=== PATIENT | female | born 1940 | race Caucasian/White ===

== ENCOUNTER 2016-09-19 15:05 | Outpatient (CLI) | payer MEDICARE | END 2016-09-19 15:06 | disposition home or self-care (01) | DX: I48.0 Paroxysmal atrial fibrillation (principal) ==

== ENCOUNTER 2017-01-11 11:41 | Outpatient (CLI) | payer OTHER, MEDICARE | END 2017-01-11 11:42 | disposition critical access hospital (66) | LOC: EMS 11:41 | PROVIDERS: ATTEND Surgery | DX: M25.561 Pain in right knee (principal); M25.522 Pain in left elbow; Z79.01 Long term (current) use of anticoagulants; V48.5XXA Car driver injured in noncollision transport accident in traffic accident, initial encounter; Y92.413 State road as the place of occurrence of the external cause | CPT/HCPCS: A0425; A0427 ==

== ENCOUNTER 2017-01-11 11:56 | Emergency (ER) | payer OTHER, MEDICARE ==
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
[2017-01-11 12:31] LABS: BASOPHILS % (AUTO) 0.5 %; EOSINOPHILS # (AUTO) 0.1 10^3/uL (0.0-0.7); EOSINOPHILS % (AUTO) 2.7 %; HCT - HEMATOCRIT 35.3 % (37.0-47.0); HGB - HEMOGLOBIN 12.4 g/dL (12.0-16.0); LYMPHOCYTES # (AUTO) 1.3 10^3/uL (1.5-3.5); LYMPHOCYTES % (AUTO) 27.5 %; MEAN CORPUSCULAR HEMOGLOBIN 32.6 pg (27.0-31.0); MEAN PLATELET VOLUME 8.1 fL (7.9-10.8); MONOCYTES # (AUTO) 0.4 10^3/uL (0.0-1.0); MONOCYTES % (AUTO) 9.4 %; NEUTROPHILS # (AUTO) 2.7 10^3/uL (1.5-6.6); NEUTROPHILS % (AUTO) 59.9 %; RED CELL DISTRIBUTION WIDTH 13.3 % (12.0-15.0); UNCORRECTED WHITE BLOOD COUNT 4.6 x10^3/uL; WHITE BLOOD COUNT 4.6 x10^3/uL (4.8-10.8)
[2017-01-11 12:39] LABS: ALBUMIN/GLOBULIN RATIO 1.4 (1.0-2.2); BILIRUBIN,TOTAL 1.1 mg/dL (0.2-1.0); BUN - BLOOD UREA NITROGEN 21 mg/dL (6-20); CALCIUM 9.2 mg/dL (8.5-10.3); CARBON DIOXIDE - CO2 30 mmol/L (21-32); CHLORIDE 102 mmol/L (101-111); GFR - MDRD 54 (>89); GLUCOSE 95 mg/dL (70-100); LIPASE 33 U/L (22-51); MAGNESIUM 1.8 mg/dL (1.7-2.8); POTASSIUM 3.5 mmol/L (3.5-5.0); SODIUM 138 mmol/L (135-145); TOTAL PROTEIN 6.4 g/dL (6.7-8.2)
--- NOTE | 2017-01-11 13:31 | CT Preliminary Report ---
Exam: CT Head W/O IMPRESSION: Generalized age-related cortical atrophic changes without evidence of acute intracranial abnormality. [facility] SITE ID: [id number]
--- NOTE | 2017-01-11 13:32 | XRAY Preliminary Report ---
Exam: XR Chest 2 View PA/LAT IMPRESSION: 1. Moderate hiatal hernia. 2. Otherwise, unremarkable exam. [facility] SITE ID: [id number]
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
[2017-01-11 14:03] VITALS: BP 127/60
== END 2017-01-11 14:20 | disposition home or self-care (01) ==
LOC: EDUNIT# → ED 11:56
DX: R55 Syncope and collapse (principal); S80.01XA Contusion of right knee, initial encounter; S50.311A Abrasion of right elbow, initial encounter; V48.0XXA Car driver injured in noncollision transport accident in nontraffic accident, initial encounter; I48.91 Unspecified atrial fibrillation; Z79.01 Long term (current) use of anticoagulants; Z79.82 Long term (current) use of aspirin; G20 Parkinson's disease
CPT/HCPCS: 36415; 70450; 71020; 80053; 83690; 83735; 84484; 85025; 93005; 93010; 99284; G0480; 80320

== ENCOUNTER 2017-01-25 13:35 | Outpatient (CLI) | payer MEDICARE | END 2017-01-25 13:36 | disposition home or self-care (01) | LOC: LAB 13:35 | PROVIDERS: ATTEND Internal Medicine Cardiovascular Disease | DX: I48.0 Paroxysmal atrial fibrillation (principal) | CPT/HCPCS: 36415; 82565 ==

== ENCOUNTER 2017-05-03 11:35 | Outpatient (CLI) | payer MEDICARE ==
[2017-05-03 12:35] LABS: CREATININE 1.1 mg/dL (0.4-1.0)
== END 2017-05-03 11:36 | disposition home or self-care (01) ==
LOC: LAB 11:35
PROVIDERS: ATTEND Nurse Practitioner
DX: I48.0 Paroxysmal atrial fibrillation (principal)
CPT/HCPCS: 36415; 82565

== ENCOUNTER 2017-08-02 10:35 | Outpatient (CLI) | payer MEDICARE ==
[2017-08-02 18:05] LABS: INR 1.2 (0.8-1.2); PT - PROTHROMBIN TIME 13.4 secs (9.9-12.6)
[2017-08-02 18:13] LABS: CREATININE 1.1 mg/dL (0.4-1.0)
== END 2017-08-02 10:36 | disposition home or self-care (01) ==
LOC: LAB.F 10:35
PROVIDERS: ATTEND Family Medicine
DX: I48.0 Paroxysmal atrial fibrillation (principal)
CPT/HCPCS: 36415; 82565; 85610

== ENCOUNTER 2018-04-16 13:35 | Emergency (ER) | payer MEDICARE ==
--- NOTE | 2018-04-16 15:04 | ED Physician Documentation ---
PD HPI HEAD INJURY - Stated complaint Stated Complaint: GLF/LT FACE LAC/XARELTO - Chief complaint Chief Complaint: Trauma Hd/Nk - History obtained from History obtained from: Patient, Family - History of Present Illness Mechanism of head injury: Fell Where head injury occurred: Home Timing - onset: Today Location of injury: Left, Front Quality of pain: Pain Associated symptoms: Nausea / vomiting. No: LOC, AMS, Amnesia, Neck pain, Paresthesias, Seizures, Ear drainage, Nasal drainage Symptoms improve with: Rest, Ice Symptoms worsen with: Palpation, Movement Contributing factors: Anticoagulated Similar symptoms before: Diagnosis (head injury without bleeding) Recently seen: Not recently seen - Additional information Additional information: 77-year-old female on Xarelto tripped over her garden hose fell forward and landed on her left face. She injured her left shoulder and her left knee with this fall. She did not have loss of consciousness she denies any neck pain she has had some mild nausea. Review of Systems Constitutional: denies: Fever Eyes: denies: Loss of vision, Decreased vision Ears: denies: Ear pain Nose: denies: Rhinorrhea / runny nose, Congestion Throat: denies: Sore throat Cardiac: denies: Chest pain / pressure, Palpitations Respiratory: denies: Dyspnea, Cough GI: reports: Nausea. denies: Abdominal Pain, Vomiting : denies: Dysuria, Frequency Skin: denies: Rash Musculoskeletal: reports: Extremity pain, Joint pain, Joint swelling, Pain with weight bearing. denies: Neck pain, Back pain Neurologic: denies: Generalized weakness, Focal weakness, Numbness PD PAST MEDICAL HISTORY - Past Medical History Past Medical History: Yes Cardiovascular: High cholesterol, Atrial fibrillation Respiratory: None Neuro: Parkinson's Endocrine/Autoimmune: None GI: GERD : None HEENT: None Psych: None Musculoskeletal: None Derm: None - Past Surgical History Past Surgical History: Yes General: Cholecystectomy - Present Medications Home Medications: Ambulatory Orders Medication Instructions Recorded Confirmed Aspirin [Willie Chewable Aspirin] 81 mg PO DAILY 12/11/15 01/11/17 Ca/D3/Mag#11/Zinc/Protection Chief Industrial Plant/Td/Bor 1 tab PO DAILY 12/11/15 01/11/17 [Caltrate 600+D Plus Tablet] Carbidopa/Levodopa [Carbidopa-Levo 1 tab PO TID 12/11/15 01/11/17 25-100 mg Odt] Cholecalciferol (Vitamin D3) 2,000 unit PO BID 12/11/15 01/11/17 [Vitamin D] Magnesium Oxide [Magnesium] 250 mg PO DAILY 12/11/15 01/11/17 Omeprazole 20 mg PO DAILY 12/11/15 01/11/17 Ropinirole HCl [Ropinirole ER] 6 mg PO DAILY 12/11/15 01/11/17 Simvastatin 10 mg PO DAILY 12/11/15 01/11/17 Rivaroxaban [Xarelto] 15 mg PO DAILY 01/11/17 01/11/17 - Allergies Allergies/Adverse Reactions: Allergies Allergy/AdvReac Type Severity Reaction Status Date / Time Sulfa (Sulfonamide Allergy Edema Verified 04/16/18 13:46 Antibiotics) - Social History Does the pt smoke?: No Smoking Status: Never smoker Does the pt drink ETOH?: No Does the pt have substance abuse?: No - Immunizations Immunizations are current?: Yes - POLST Patient has POLST: Yes PD ED PE NORMAL - Vitals Vital signs reviewed: Yes (normal ) - General General: Alert and oriented X 3, No acute distress, Well developed/nourished - HEENT HEENT: PERRL, EOMI, Ears normal, Other (There is a deep abrasion to the face on the left side especially the forehead with a deep laceration . There is a laceration to the left eyelid as well. ) - Neck Neck: Supple, no meningeal sign, No bony TTP - Cardiac Cardiac: RRR, No murmur - Respiratory Respiratory: No respiratory distress, Clear bilaterally - Abdomen Abdomen: Soft, Non tender - Back Back: No CVA TTP, No spinal TTP - Derm Derm: Normal color, Warm and dry, No rash - Extremities Extremities: No deformity, Other (There is swelling and ecchymosis to the left knee over the patella. There ) - Neuro Neuro: Alert and oriented X 3, motor vehicle emissions inspector 2-12 intact, No motor deficit, No sensory deficit, Normal speech Eye Opening: Spontaneous Motor: Obeys Commands Verbal: Oriented GCS Score: 15 - Psych Psych: Normal mood, Normal affect Results - Vitals Vitals: Vital Signs - 24 hr 04/16/18 13:41 Temperature 36.7 C Heart Rate 63 Respiratory 18 Rate Blood Pressure 121/71 O2 Saturation 99 Oxygen O2 Source [] Room air O2 Source Room air - Rads (name of study) CT head without Radiology: Prelim report reviewed (Impression: 1. Left frontal subgaleal scalp hematoma. No acute intracranial abnormality.), EMP read indepedently, See rad report knee left Radiology: Prelim report reviewed (Impression: Soft tissue swelling without underlying fracture or dislocation.), EMP read indepedently, See rad report Procedures - Laceration (location) face Length in cm: 5.5 (2 lacerations one to the forehead and one to the left eyelid) Wound type: Linear, Irregular, Into subcut fat, Clean Neurovascular status: Sensory intact, Motor intact, Vascular intact Anesthesia: Lidocaine 1%, With bicarb Wound Preparation: Hibiclens, Irrigated copiously NS, Wound explored, To the base Skin layer closure: Nylon, Interrupted, Size #-0 - enter number (6-0) Other: Patient tolerated well, No complications, Neurovascular intact, Tetanus UTD Complexity: Simple PD MEDICAL DECISION MAKING - ED course Complexity details: reviewed results, re-evaluated patient, considered differential, d/w patient, d/w family ED course: 77-year-old female on Xarelto for atrial fibrillation has had a fall injuring her face with lacerations to her forehead and eye lid on the left side she has some abrasions to the face as well with a lot of swelling. The lacerations are sutured. The left knee is bruised as well with a significant hematoma which is grown in the time the patient has been in the emergency department this is restricted with use of a Derrell wrap. The patient is warned about swelling and discoloration likely to occur. - Sepsis Event Vital Signs: Vital Signs - 24 hr 04/16/18 13:41 Temperature 36.7 C Heart Rate 63 Respiratory 18 Rate Blood Pressure 121/71 O2 Saturation 99 Oxygen O2 Source [] Room air O2 Source Room air Departure - Departure Disposition: 01 Home, Self Care Clinical Impression: Contusion of face Qualifiers: Encounter type: initial encounter Qualified Code(s): S00.83XA - Contusion of other part of head, initial encounter Knee contusion Qualifiers: Encounter type: initial encounter Laterality: left Qualified Code(s): S80.02XA - Contusion of left knee, initial encounter Face lacerations Qualifiers: Encounter type: initial encounter Qualified Code(s): S01.81XA - Laceration without foreign body of other part of head, initial encounter Condition: Stable Instructions: ED Head Injury Closed, ED Contusion Lower Ext, ED Hematoma, ED Laceration Facial Sutr Tape Follow-Up: Nathaniel Meeks MD [Primary Care Provider] - Comments: There is likely to be a significant amount of swelling to your face and your I will likely be swollen shut in the morning. This should improve when she were sitting up. There will likely be some tracking of blood to the left foot from the left knee. There will be significant discoloration. It is possible to lose significant blood into the soft tissues and he become faint or lightheaded return for reevaluation.
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
--- NOTE | 2018-04-16 15:32 | XRAY Report ---
Reason: contusion anterior pain Procedure Date: 04/16/2018 Accession Number: [id number] / [id number] Procedure: XR - Knee 4 View LT CPT Code: FULL RESULT: EXAM: LEFT KNEE RADIOGRAPHY EXAM DATE: 04/16/2018 03:04 PM. CLINICAL HISTORY: Ground-level fall, left anterior knee pain COMPARISON: None. TECHNIQUE: 4 views. FINDINGS: Bones: Normal. No fractures or bone lesions. Joints: Minimal osteoarthritis. Soft Tissues: Soft tissue swelling lateral to the knee and anterior to the proximal tibia. IMPRESSION: Soft tissue swelling without underlying fracture or dislocation. [facility]
[2018-04-16] MEDS ORDERED: BUFFERED LIDOCAINE 10 ML SYRINGE SUBQ STA (15:33)
[2018-04-16 16:42] VITALS: BP 150/82
== END 2018-04-16 16:40 | disposition home or self-care (01) ==
LOC: ED 13:35
DX: S01.81XA Laceration without foreign body of other part of head, initial encounter (principal); S01.112A Laceration without foreign body of left eyelid and periocular area, initial encounter; S00.03XA Contusion of scalp, initial encounter; S80.02XA Contusion of left knee, initial encounter; Z79.01 Long term (current) use of anticoagulants; I48.91 Unspecified atrial fibrillation; Z79.82 Long term (current) use of aspirin; W01.10XA Fall on same level from slipping, tripping and stumbling with subsequent striking against unspecified object, initial encounter; Y92.008 Other place in unspecified non-institutional (private) residence as the place of occurrence of the external cause
CPT/HCPCS: 12014; 70450; 99283

== ENCOUNTER 2018-07-23 12:55 | Outpatient (CLI) | payer MEDICARE ==
[2018-07-23 13:33] LABS: CALCIUM 9.6 mg/dL (8.5-10.3); CREATININE 0.9 mg/dL (0.4-1.0)
== END 2018-07-23 12:56 | disposition home or self-care (01) ==
LOC: LAB 12:55
PROVIDERS: ATTEND Internal Medicine Cardiovascular Disease
DX: N28.9 Disorder of kidney and ureter, unspecified (principal)
CPT/HCPCS: 36415; 80048

== ENCOUNTER 2018-12-09 10:24 | Emergency (ER) | payer MEDICARE ==
[2018-12-09 11:46] VITALS: BP 140/83
[2018-12-09] MEDS ORDERED: cefTRIAXone 1 GM VIAL IM STA (11:51)
[2018-12-09] MEDS ORDERED: LIDOCAINE 1% 2 ML VIAL MC ONE (11:51)
--- NOTE | 2018-12-09 11:55 | ED Physician Documentation ---
PD HPI ANIMAL BITE - Stated complaint Stated Complaint: CAT BITE/LEFT HAND - Chief complaint Chief Complaint: Wound - History obtained from History obtained from: Patient, Family - History of Present Illness Location of injury(ies): Left hand Details of the event: Cat, Bite, Well appearing, Immunized, Animal can be observed Timing - onset: Last night Timing - duration: Hours Timing - details: Abrupt onset, Still present Improved by: Rest Worsened by: Moving, Palpating Associated symptoms: Swelling, Discolored. No: Weakness, Numbness Contributing factors: No: Immunocompromised Similar symptoms before: Has not had sx before Recently seen: Not recently seen - Additional information Additional information: Previously well 78-year-old female with a history of parkinsons who is on xarolto had her cat sitting on her lap and another cat wanted to get up on the her lap and 1 of the 2 cats bit her on her left hand. She had some immediate swelling she has had some redness and swelling that is developed and she is come to the emergency department now with what appears to be an infection from the bite. Review of Systems Constitutional: denies: Fever Eyes: denies: Decreased vision Ears: denies: Ear pain Nose: denies: Congestion Respiratory: denies: Cough GI: denies: Vomiting Skin: reports: Rash Musculoskeletal: reports: Extremity pain. denies: Neck pain, Back pain Neurologic: denies: Generalized weakness, Focal weakness, Numbness PD PAST MEDICAL HISTORY - Past Medical History Past Medical History: Yes Cardiovascular: High cholesterol, Atrial fibrillation Respiratory: None Neuro: Parkinson's Endocrine/Autoimmune: None GI: GERD : None HEENT: None Psych: None Musculoskeletal: None Derm: None - Past Surgical History Past Surgical History: Yes General: Cholecystectomy - Present Medications Home Medications: Ambulatory Orders Medication Instructions Recorded Confirmed Ca/D3/Mag#11/Zinc/Charger Operator Helper/Td/Bor 1 tab PO DAILY 12/11/15 12/09/18 [Caltrate 600+D Plus Tablet] Carbidopa/Levodopa [Carbidopa-Levo 1 tab PO TID 12/11/15 12/09/18 25-100 mg Odt] Cholecalciferol (Vitamin D3) 2,000 unit PO BID 12/11/15 12/09/18 [Vitamin D] Magnesium Oxide [Magnesium] 250 mg PO DAILY 12/11/15 12/09/18 Omeprazole 20 mg PO DAILY 12/11/15 12/09/18 Ropinirole HCl [Ropinirole ER] 6 mg PO DAILY 12/11/15 12/09/18 Simvastatin 10 mg PO DAILY 12/11/15 12/09/18 Rivaroxaban [Xarelto] 15 mg PO DAILY 01/11/17 12/09/18 Amox/Clav 875/125 [Augmentin] 1 each PO Q12H #14 tablet 12/09/18 - Allergies Allergies/Adverse Reactions: Allergies Allergy/AdvReac Type Severity Reaction Status Date / Time Sulfa (Sulfonamide Allergy Edema Verified 12/09/18 10:31 Antibiotics) - Social History Does the pt smoke?: No Smoking Status: Never smoker Does the pt drink ETOH?: No Does the pt have substance abuse?: No - Immunizations Immunizations are current?: Yes - POLST Patient has POLST: Yes PD ED PE NORMAL - Vitals Vital signs reviewed: Yes (hypertensive mild ) - General General: Alert and oriented X 3, No acute distress, Well developed/nourished - HEENT HEENT: Atraumatic, PERRL, EOMI - Respiratory Respiratory: No respiratory distress - Derm Derm: Normal color, Warm and dry, No rash - Extremities Extremities: No deformity, Other (There is swelling, erythema and tenderness to the dorsum of the left hand. There are 2 bite south to the dorsum of the hand and there is some lymphangitic streaking just starting up. The area is outlined with a surgical marker. She is able to open and close the hand but with pain. There is no swelling to the palmar surface. ) - Neuro Neuro: Alert and oriented X 3, juice scaleman 2-12 intact, No motor deficit, No sensory deficit, Normal speech Eye Opening: Spontaneous Motor: Obeys Commands Verbal: Oriented GCS Score: 15 - Psych Psych: Normal mood, Normal affect Results - Vitals Vitals: Vital Signs - 24 hr 12/09/18 12/09/18 10:29 11:45 Temperature 36.5 C 37.1 C Heart Rate 66 64 Respiratory 18 16 Rate Blood Pressure 136/70 H 140/83 H O2 Saturation 100 100 Oxygen O2 Source [With Activity] Room air O2 Source Room air PD MEDICAL DECISION MAKING - ED course Complexity details: considered differential, d/w patient, d/w family ED course: 78-year-old female with a cat bite cellulitis is administered Rocephin 1 g IM we will place her on some Augmentin her cellulitis is outlined she does have some lymphangitic streaking. Departure - Departure Disposition: 01 Home, Self Care Clinical Impression: Cat bite of left hand with infection Qualifiers: Encounter type: initial encounter Qualified Code(s): S61.452A - Open bite of left hand, initial encounter; L08.9 - Local infection of the skin and subcutaneous tissue, unspecified; W55.01XA - Bitten by cat, initial encounter Condition: Stable Instructions: ED Bite Cat Follow-Up: Nathaniel Meeks MD [Primary Care Provider] - Prescriptions: Amox/Clav 875/125 [Augmentin] 1 each PO Q12H #14 tablet
== END 2018-12-09 12:05 | disposition home or self-care (01) ==
LOC: ED 10:24
DX: S61.452A Open bite of left hand, initial encounter (principal); L03.114 Cellulitis of left upper limb; W55.01XA Bitten by cat, initial encounter; G20 Parkinson's disease; I48.91 Unspecified atrial fibrillation; Z79.01 Long term (current) use of anticoagulants
CPT/HCPCS: 96372; 99283

== ENCOUNTER 2019-01-23 06:59 | Emergency (ER) | payer MEDICARE ==
--- NOTE | 2019-01-23 07:06 | ED Physician Documentation ---
PD HPI FEMALE - Stated complaint Stated Complaint: FEMALE - History obtained from History obtained from: Patient - History of Present Illness Timing - onset: Yesterday Timing - duration: Days (1) Timing - details: Abrupt onset, Still present Associated symptoms: Back pain (chronic due to arthritis, does not feel different than usual.), Dysuria, Urinary frequency. No: Fever, Pelvic pain, Vaginal discharge Similar symptoms before: Diagnosis (UTIs) Recently seen: Not recently seen Review of Systems Constitutional: denies: Fever, Chills : reports: Dysuria, Frequency. denies: Discharge Musculoskeletal: reports: Back pain (chronic, not recently worse) PD PAST MEDICAL HISTORY - Past Medical History Cardiovascular: High cholesterol, Atrial fibrillation Respiratory: None Neuro: Parkinson's Endocrine/Autoimmune: None GI: GERD : None HEENT: None Psych: None Musculoskeletal: None Derm: None - Past Surgical History Past Surgical History: Yes General: Cholecystectomy - Present Medications Home Medications: Ambulatory Orders Medication Instructions Recorded Confirmed Ca/D3/Mag#11/Zinc/Lab Intern/Td/Bor 1 tab PO DAILY 12/11/15 12/09/18 [Caltrate 600+D Plus Tablet] Carbidopa/Levodopa [Carbidopa-Levo 1 tab PO TID 12/11/15 12/09/18 25-100 mg Odt] Cholecalciferol (Vitamin D3) 2,000 unit PO BID 12/11/15 12/09/18 [Vitamin D] Magnesium Oxide [Magnesium] 250 mg PO DAILY 12/11/15 12/09/18 Omeprazole 20 mg PO DAILY 12/11/15 12/09/18 Ropinirole HCl [Ropinirole ER] 6 mg PO DAILY 12/11/15 12/09/18 Simvastatin 10 mg PO DAILY 12/11/15 12/09/18 Rivaroxaban [Xarelto] 15 mg PO DAILY 01/11/17 12/09/18 Amox/Clav 875/125 [Augmentin] 1 each PO Q12H #14 tablet 12/09/18 Cephalexin [Keflex] 500 mg PO TID #15 capsule 01/23/19 - Allergies Allergies/Adverse Reactions: Allergies Allergy/AdvReac Type Severity Reaction Status Date / Time Sulfa (Sulfonamide Allergy Edema Verified 01/23/19 07:08 Antibiotics) - Social History Does the pt smoke?: No Smoking Status: Never smoker Does the pt drink ETOH?: No Does the pt have substance abuse?: No - Immunizations Immunizations are current?: Yes - POLST Patient has POLST: Yes PD ED PE NORMAL - Vitals Vital signs reviewed: Yes - General General: Alert and oriented X 3, No acute distress, Well developed/nourished - Abdomen Abdomen: Soft, Non tender - Female Female : Deferred - Back Back: No CVA TTP - Derm Derm: Normal color, Warm and dry - Neuro Neuro: Alert and oriented X 3, No motor deficit, Normal speech Results - Vitals Vitals: Vital Signs - 24 hr 01/23/19 07:06 Temperature 36.9 C Heart Rate 74 Respiratory 16 Rate Blood Pressure 141/86 H O2 Saturation 98 Oxygen O2 Source [With Activity] Room air O2 Source Room air Departure - Departure Disposition: 01 Home, Self Care Clinical Impression: Dysuria UTI (urinary tract infection) Qualifiers: Urinary tract infection type: acute cystitis Hematuria presence: without hematuria Qualified Code(s): N30.00 - Acute cystitis without hematuria Condition: Stable Record reviewed to determine appropriate education?: Yes Instructions: ED UTI Cystitis Female Follow-Up: Nathaniel Meeks MD [Primary Care Provider] - Prescriptions: Cephalexin [Keflex] 500 mg PO TID #15 capsule Comments: Stay well-hydrated. Continue your phenazopyridine as needed for discomfort. A dd Tylenol if needed for discomfort. Cephalexin antibiotic 3 times a day for 5 days for the infection. Recheck if not improving over the next couple of days. Return if worse
[2019-01-23 07:08] VITALS: BP 141/86
[2019-01-23] MEDS ORDERED: cephALEXin 250 MG CAPSULE PO STA (07:51)
[2019-01-23] MEDS ORDERED: PHENAZOPYRIDINE 100 MG TABLET PO STA (07:51)
[2019-01-23 08:14] LABS: CLARITY,URINE TURBID (CLEAR)
[2019-01-23 08:16] LABS: BILIRUBIN,URINE COLOR INTERFERENCE (NEGATIVE)
[2019-01-23 08:25] LABS: RBC,URINE TNTC /HPF (0-5); SQUAMOUS EPITHELIAL CELL,UR FEW Squamous (<= Few); WBC CLUMPS,URINE PRESENT
[2019-01-23 08:26] LABS: BACTERIA,URINE Few /HPF (None Seen)
== END 2019-01-23 08:22 | disposition home or self-care (01) ==
LOC: ED 06:59
DX: N30.00 Acute cystitis without hematuria (principal); M47.9 Spondylosis, unspecified; G89.29 Other chronic pain; G20 Parkinson's disease; I48.91 Unspecified atrial fibrillation; Z79.899 Other long term (current) drug therapy; Z79.01 Long term (current) use of anticoagulants
CPT/HCPCS: 81001; 87086; 87181; 99283; A9270; 81003

== ENCOUNTER 2019-07-21 12:17 | Emergency (ER) | payer MEDICARE ==
[2019-07-21 12:43] LABS: BILIRUBIN,URINE NEGATIVE (NEGATIVE); KETONES,URINE (UA) NEGATIVE (NEGATIVE); PH,URINE 7.5 PH (5.0-7.5)
[2019-07-21 12:50] LABS: CLARITY,URINE CLEAR (CLEAR)
[2019-07-21] MEDS ORDERED: cephALEXin 250 MG CAPSULE PO STA (12:55)
--- NOTE | 2019-07-21 13:03 | ED Physician Documentation ---
History of Present Illness - Stated complaint Stated Complaint: FEMALE - Chief complaint Chief Complaint: UTI - History obtained from History obtained from: Patient - History of Present Illness Timing: How many days ago (3) Pain level max: 4 Pain level now: 3 - Additonal information Additional information: 78-year-old female with dysuria and urinary frequency for the past several days. Taking Azo without relief. No fevers. No back pain. No vomiting. No diarrhea. No vaginal bleeding or discharge. Feels like prior UTIs. Nothing makes it better. 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 : None HEENT: None Psych: None Musculoskeletal: None Derm: None - Past Surgical History Past Surgical History: Yes General: Cholecystectomy - Present Medications Home Medications: Ambulatory Orders Medication Instructions Recorded Confirmed Wei/D3/Mag11/Zinc/Keller Machine Operator/Td/Bor 1 tab PO DAILY 12/11/15 12/09/18 [Caltrate 600+D Plus Tablet] Carbidopa/Levodopa [Carbidopa-Levo 1 tab PO TID 12/11/15 12/09/18 25-100 mg Odt] Cholecalciferol (Vitamin D3) 2,000 unit PO BID 12/11/15 12/09/18 [Vitamin D] Magnesium Oxide [Magnesium] 250 mg PO DAILY 12/11/15 12/09/18 Omeprazole 20 mg PO DAILY 12/11/15 12/09/18 Ropinirole HCl [Ropinirole ER] 6 mg PO DAILY 12/11/15 12/09/18 Simvastatin 10 mg PO DAILY 12/11/15 12/09/18 Rivaroxaban [Xarelto] 15 mg PO DAILY 01/11/17 12/09/18 Amox/Clav 875/125 [Augmentin] 1 each PO Q12H #14 tablet 12/09/18 Cephalexin [Keflex] 500 mg PO TID #15 capsule 01/23/19 Cephalexin [Keflex] 500 mg PO Q6H #20 capsule 07/21/19 - Allergies Allergies/Adverse Reactions: Allergies Allergy/AdvReac Type Severity Reaction Status Date / Time Sulfa (Sulfonamide Allergy Edema Verified 07/21/19 12:22 Antibiotics) - Social History Does the pt smoke?: No Smoking Status: Never smoker Does the pt drink ETOH?: No Does the pt have substance abuse?: No - Immunizations Immunizations are current?: Yes - POLST Patient has POLST: Yes PD ED PE NORMAL - Vitals Vital signs reviewed: Yes - General General: Alert and oriented X 3, No acute distress, Well developed/nourished - HEENT HEENT: Moist mucous membranes - Neck Neck: Supple, no meningeal sign - Cardiac Cardiac: RRR - Respiratory Respiratory: No respiratory distress, Clear bilaterally - Abdomen Abdomen: Soft, Non tender, Non distended - Back Back: No CVA TTP - Derm Derm: Warm and dry - Neuro Neuro: Alert and oriented X 3 - Psych Psych: Normal mood, Normal affect Results - Vitals Vitals: Vital Signs - 24 hr 07/21/19 07/21/19 12:22 13:23 Temperature 36.4 C L Heart Rate 64 59 L Respiratory 16 16 Rate Blood Pressure 144/92 H 111/65 O2 Saturation 100 99 Oxygen O2 Source [With Activity] Room air O2 Source Room air - Labs Labs: Laboratory Tests 07/21/19 12:38 Urine Color ORANGE Urine Clarity CLEAR Urine pH 7.5 Ur Specific [place] 1.010 Urine Protein Urine Glucose (UA) Urine Ketones NEGATIVE Urine Occult Blood Urine Nitrite Urine Bilirubin NEGATIVE Urine Urobilinogen Ur Leukocyte Esterase Urine RBC TNTC H Urine WBC >25 H Urine WBC Clumps PRESENT Ur Squamous Epith Cells FEW Squamous Urine Bacteria Few Ur Microscopic Review INDICATED Urine Culture Comments INDICATED PD MEDICAL DECISION MAKING - ED course Complexity details: reviewed results, considered differential, d/w patient ED course: Patient with a UTI. Will place on antibiotics for home. She is well-appearing, nontoxic. Afebrile. No evidence of pyelonephritis. Patient counseled regarding signs and symptoms for which I believe and urgent re-evaluation would be necessary. Patient with good understanding of and agreement to plan and is comfortable going home at this time This document was made in part using voice recognition software. While efforts are made to proofread this document, sound alike and grammatical errors may occur. Departure - Departure Disposition: 01 Home, Self Care Clinical Impression: UTI (urinary tract infection) Qualifiers: Urinary tract infection type: acute cystitis Hematuria presence: without hematuria Qualified Code(s): N30.00 - Acute cystitis without hematuria Condition: Good Instructions: ED UTI Cystitis Female Follow-Up: Your,doctor in 1 week If not better [Other] Prescriptions: Cephalexin [Keflex] 500 mg PO Q6H #20 capsule Comments: Take all antibiotics until gone. Return if you worsen. Follow-up with your doctor if you do not improve as expected. Discharge Date/Time: 07/21/19 13:24
[2019-07-21 13:05] LABS: BACTERIA,URINE Few /HPF (None Seen); RBC,URINE TNTC /HPF (0-5); SQUAMOUS EPITHELIAL CELL,UR FEW Squamous (<= Few); WBC CLUMPS,URINE PRESENT
[2019-07-21 13:24] VITALS: BP 111/65
== END 2019-07-21 13:24 | disposition home or self-care (01) ==
LOC: ED 12:17
DX: N30.00 Acute cystitis without hematuria (principal); I48.91 Unspecified atrial fibrillation; Z79.01 Long term (current) use of anticoagulants; G20 Parkinson's disease
CPT/HCPCS: 81001; 87086; 99283; 99284; A9270; 81003

== ENCOUNTER 2019-09-20 09:33 | Emergency (ER) | payer MEDICARE ==
[2019-09-20 09:51] VITALS: BP 119/98
[2019-09-20 10:31] LABS: CLARITY,URINE CLOUDY (CLEAR)
[2019-09-20 10:32] LABS: BILIRUBIN,URINE COLOR INTERFERENCE (NEGATIVE)
[2019-09-20 10:33] LABS: BACTERIA,URINE Many /HPF (None Seen); EPITHELIAL CELLS,UR RARE Renal Tubular /HPF (<= Few); RBC,URINE TNTC /HPF (0-5); SQUAMOUS EPITHELIAL CELL,UR FEW Squamous (<= Few); WBC CLUMPS,URINE PRESENT
--- NOTE | 2019-09-20 11:24 | ED Physician Documentation ---
PD HPI FEMALE - Stated complaint Stated Complaint: FEMALE - Chief complaint Chief Complaint: UTI - History obtained from History obtained from: Patient - History of Present Illness Timing - onset: How many days ago (2) Timing - duration: Days (2) Timing - details: Gradual onset, Still present Associated symptoms: Dysuria, Urinary frequency Similar symptoms before: Diagnosis (UIT) Recently seen: Not recently seen - Additional information Additional information: 78-year-old female with a prior history of urinary tract infection and incontinence has developed symptoms again consistent with what she is had previously with urinary tract infection she denies any fever she denies any nausea and she denies any flank pain. 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 HEENT: None Psych: None Musculoskeletal: None Derm: None - Past Surgical History Past Surgical History: Yes General: Cholecystectomy - Present Medications Home Medications: Ambulatory Orders Medication Instructions Recorded Confirmed Wei/D3/Mag11/Zinc/Patent Legal Assistant/Td/Bor 1 tab PO DAILY 12/11/15 12/09/18 [Caltrate 600+D Plus Tablet] Carbidopa/Levodopa [Carbidopa-Levo 1 tab PO TID 12/11/15 12/09/18 25-100 mg Odt] Cholecalciferol (Vitamin D3) 2,000 unit PO BID 12/11/15 12/09/18 [Vitamin D] Magnesium Oxide [Magnesium] 250 mg PO DAILY 12/11/15 12/09/18 Omeprazole 20 mg PO DAILY 12/11/15 12/09/18 Ropinirole HCl [Ropinirole ER] 6 mg PO DAILY 12/11/15 12/09/18 Simvastatin 10 mg PO DAILY 12/11/15 12/09/18 Rivaroxaban [Xarelto] 15 mg PO DAILY 01/11/17 12/09/18 Amox/Clav 875/125 [Augmentin] 1 each PO Q12H #14 tablet 12/09/18 Cephalexin [Keflex] 500 mg PO TID #15 capsule 01/23/19 Cephalexin [Keflex] 500 mg PO Q6H #20 capsule 07/21/19 Nitrofurantoin Monohyd/M-Cryst 100 mg PO BID #10 capsule 09/20/19 [Macrobid 100 mg Capsule] - Allergies Allergies/Adverse Reactions: Allergies Allergy/AdvReac Type Severity Reaction Status Date / Time Sulfa (Sulfonamide Allergy Edema Verified 09/20/19 09:49 Antibiotics) - Social History Does the pt smoke?: No Smoking Status: Never smoker Does the pt drink ETOH?: No Does the pt have substance abuse?: No - Immunizations Immunizations are current?: Yes - POLST Patient has POLST: Yes PD ED PE NORMAL - Vitals Vital signs reviewed: Yes (hypertensive mild ) - General General: Alert and oriented X 3, No acute distress, Well developed/nourished - HEENT HEENT: Atraumatic, PERRL, EOMI - Respiratory Respiratory: No respiratory distress - Back Back: No CVA TTP, No spinal TTP - Derm Derm: Normal color, Warm and dry, No rash - Extremities Extremities: No deformity, No edema - Neuro Neuro: Alert and oriented X 3, lidar technician 2-12 intact, No motor deficit, No sensory deficit, Normal speech Eye Opening: Spontaneous Motor: Obeys Commands Verbal: Oriented GCS Score: 15 - Psych Psych: Normal mood, Normal affect Results - Vitals Vitals: Vital Signs - 24 hr 09/20/19 09:49 Temperature 36.8 C Heart Rate 67 Respiratory 15 Rate Blood Pressure 119/98 H O2 Saturation 98 Oxygen O2 Source [With Activity] Room air O2 Source Room air - Labs Labs: Laboratory Tests 09/20/19 10:05 Urine Color DK. ORANGE Urine Clarity CLOUDY Urine pH Ur Specific [place] Urine Protein Urine Glucose (UA) Urine Ketones Urine Occult Blood Urine Nitrite Urine Bilirubin COLOR INTERFERENCE Urine Urobilinogen Ur Leukocyte Esterase Urine RBC TNTC H Urine WBC >25 H Urine WBC Clumps PRESENT Ur Epithelial Cells RARE Renal Tubular Ur Squamous Epith Cells FEW Squamous Urine Bacteria Many H Ur Microscopic Review INDICATED Urine Culture Comments INDICATED PD MEDICAL DECISION MAKING - ED course Complexity details: reviewed results, re-evaluated patient, considered differential, d/w patient ED course: 78-year-old female with prior history of urinary tract infection has urinary tract infection her prior urines have grown E. coli the last one was sensitive. The previous one had some resistance to beta-lactam's. We will place her today on some Macrobid. Departure - Departure Disposition: 01 Home, Self Care Clinical Impression: UTI (urinary tract infection) Qualifiers: Urinary tract infection type: acute cystitis Hematuria presence: without hematuria Qualified Code(s): N30.00 - Acute cystitis without hematuria Condition: Stable Instructions: ED UTI Cystitis Female Follow-Up: Your, doctor [Other] Prescriptions: Nitrofurantoin Monohyd/M-Cryst [Macrobid 100 mg Capsule] 100 mg PO BID #10 capsule
== END 2019-09-20 11:41 | disposition home or self-care (01) ==
LOC: ED 09:33
DX: N30.00 Acute cystitis without hematuria (principal); I48.91 Unspecified atrial fibrillation; Z79.01 Long term (current) use of anticoagulants; G20 Parkinson's disease
CPT/HCPCS: 81001; 81003; 87086; 99283; 99284

== ENCOUNTER 2020-07-29 10:02 | Outpatient (CLI) | payer MEDICARE ==
[2020-07-29 10:34] LABS: CREATININE 0.9 mg/dL (0.4-1.0)
== END 2020-07-29 10:03 | disposition home or self-care (01) ==
LOC: LAB 10:02
PROVIDERS: ATTEND Internal Medicine
DX: I48.0 Paroxysmal atrial fibrillation (principal)
CPT/HCPCS: 36415; 82565

== ENCOUNTER 2020-10-18 13:45 | Outpatient (CLI) | payer MEDICARE | END 2020-10-18 23:59 | disposition home or self-care (01) | LOC: LAB.S 13:45 | PROVIDERS: ATTEND Physician Assistant | DX: N39.0 Urinary tract infection, site not specified (principal) | CPT/HCPCS: 87086; 87181 ==

== ENCOUNTER 2020-10-30 16:04 | Outpatient (CLI) | payer MEDICARE ==
[2020-10-30 16:17] LABS: BASOPHILS % (AUTO) 0.2 %; EOSINOPHILS # (AUTO) 0.1 10^3/uL (0.0-0.7); EOSINOPHILS % (AUTO) 2.9 %; HGB - HEMOGLOBIN 12.3 g/dL (12.0-16.0); LYMPHOCYTES # (AUTO) 1.2 10^3/uL (1.5-3.5); LYMPHOCYTES % (AUTO) 29.7 %; MEAN CORPUSCULAR HEMOGLOBIN 32.8 pg (27.0-31.0); MEAN CORPUSCULAR HGB CONC 33.2 g/dL (32.0-36.0); MEAN CORPUSCULAR VOLUME 98.7 fL (81.0-99.0); MEAN PLATELET VOLUME 9.6 fL (7.9-10.8); MONOCYTES # (AUTO) 0.4 10^3/uL (0.0-1.0); MONOCYTES % (AUTO) 10.3 %; NEUTROPHILS # (AUTO) 2.3 10^3/uL (1.5-6.6); NEUTROPHILS % (AUTO) 56.7 %; PLT - PLATELET COUNT 144 10^3/uL (130-450); RED BLOOD COUNT 3.75 10^6/uL (4.20-5.40); RED CELL DISTRIBUTION WIDTH 12.2 % (12.0-15.0); WHITE BLOOD COUNT 4.1 x10^3/uL (4.8-10.8)
== END 2020-10-30 16:05 | disposition home or self-care (01) ==
LOC: LAB 16:04
PROVIDERS: ATTEND Internal Medicine
DX: I48.0 Paroxysmal atrial fibrillation (principal)
CPT/HCPCS: 36415; 85025

== ENCOUNTER 2021-02-04 15:06 | Outpatient (CLI) | payer MEDICARE ==
[2021-02-04 15:35] LABS: BASOPHILS % (AUTO) 0.4 %; EOSINOPHILS # (AUTO) 0.1 10^3/uL (0.0-0.7); EOSINOPHILS % (AUTO) 2.1 %; HCT - HEMATOCRIT 37.3 % (37.0-47.0); HGB - HEMOGLOBIN 12.3 g/dL (12.0-16.0); LYMPHOCYTES # (AUTO) 1.2 10^3/uL (1.5-3.5); LYMPHOCYTES % (AUTO) 25.7 %; MEAN CORPUSCULAR HEMOGLOBIN 32.2 pg (27.0-31.0); MEAN CORPUSCULAR VOLUME 97.6 fL (81.0-99.0); MONOCYTES # (AUTO) 0.5 10^3/uL (0.0-1.0); MONOCYTES % (AUTO) 9.6 %; NEUTROPHILS # (AUTO) 2.9 10^3/uL (1.5-6.6); PLT - PLATELET COUNT 144 10^3/uL (130-450); RED BLOOD COUNT 3.82 10^6/uL (4.20-5.40); RED CELL DISTRIBUTION WIDTH 12.5 % (12.0-15.0); WHITE BLOOD COUNT 4.7 x10^3/uL (4.8-10.8)
[2021-02-04 15:45] LABS: CREATININE 0.9 mg/dL (0.4-1.0)
== END 2021-02-04 15:07 | disposition home or self-care (01) ==
LOC: LAB 15:06
PROVIDERS: ATTEND Internal Medicine
DX: I48.0 Paroxysmal atrial fibrillation (principal)
CPT/HCPCS: 36415; 82565; 85025

== ENCOUNTER 2021-12-14 20:05 | Emergency (ER) | payer MEDICARE ==
--- NOTE | 2021-12-14 20:38 | ED Physician Documentation ---
History of Present Illness - Stated complaint Stated Complaint: GLF/HEAD & RT HAND PX - Chief complaint Chief Complaint: Trauma Hd/Nk - History obtained from History obtained from: Patient - Additonal information Additional information: Patient is a 81-year-old female with a history of atrial fibrillation, on Xarelto who had a ground-level fallThis afternoon around 3 PM. Patient was using her walker in her condo complex to go outside and check her mail. She reports a gradual incline up a curb that She needed to maneuver and Lost control of her walker causing her to fall forward.She did strike her head. She did not lose consciousness. She also reports pain to the right hand and elbow.She denies neck or back pain, chest pain, difficulty breathing or abdominal pain. She denies any symptoms prior to the fall such as dizziness, chest pain or difficulty breathing.She did go to the walk-in clinic and was directed to the emergency department for evaluation given the head injury. Review of Systems Constitutional: denies: Fever Eyes: denies: Loss of vision, Decreased vision Nose: denies: Congestion Cardiac: denies: Chest pain / pressure, Palpitations Respiratory: denies: Dyspnea, Cough GI: denies: Abdominal Swelling, Vomiting : denies: Dysuria Musculoskeletal: reports: Extremity pain Neurologic: reports: Head injury. 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 - Past Surgical History Past Surgical History: Yes General: Cholecystectomy - Present Medications Home Medications: Ambulatory Orders Medication Instructions Recorded Confirmed Carbidopa/Levodopa [Carbidopa-Levo 1 tab PO TID 12/11/15 12/14/21 25-100 mg Odt] Omeprazole 20 mg PO DAILY 12/11/15 12/14/21 Ropinirole HCl [Ropinirole ER] 6 mg PO DAILY 12/11/15 12/14/21 Simvastatin 10 mg PO DAILY 12/11/15 12/14/21 Rivaroxaban [Xarelto] 15 mg PO DAILY 01/11/17 12/14/21 - Allergies Allergies/Adverse Reactions: Allergies Allergy/AdvReac Type Severity Reaction Status Date / Time Sulfa (Sulfonamide Allergy Edema Verified 12/14/21 20:13 Antibiotics) - Social History Does the pt smoke?: No Smoking Status: Never smoker Does the pt drink ETOH?: No Does the pt have substance abuse?: No - Immunizations Immunizations are current?: Yes - POLST Patient has POLST: Yes PD ED PE NORMAL - General General: Alert and oriented X 3, No acute distress, Well developed/nourished - HEENT HEENT: PERRL, EOMI, Moist mucous membranes, Pharynx benign, Other (Mild right frontal scalp contusion) - Neck Neck: Supple, no meningeal sign, No bony TTP, C-Spine cleared by NEXUS criteria - Cardiac Cardiac: RRR, No murmur, Strong equal pulses - Respiratory Respiratory: No respiratory distress, Clear bilaterally - Abdomen Abdomen: Normal bowel sounds, Soft, Non tender, Non distended - Back Back: No spinal TTP - Derm Derm: Other (Ecchymosis to right hand, full range of motion at all joints of bilateral upper and lower extremities) - Extremities Extremities: Normal ROM s pain, Other (Right hand contusion and tenderness; no wrist tenderness/full ROM without pain, no snuffbox tenderness). No: No tenderness to palpate - Neuro Neuro: Alert and oriented X 3, partner marketing intern 2-12 intact, No motor deficit, No sensory deficit, Normal speech Eye Opening: Spontaneous Motor: Obeys Commands Verbal: Oriented GCS Score: 15 - Psych Psych: Normal mood, Normal affect Results - Vitals Vitals: Vital Signs - 24 hr 12/14/21 12/14/21 12/14/21 20:11 20:16 20:17 Temperature 36.7 C Heart Rate 66 71 Respiratory 16 20 19 Rate Blood Pressure 141/48 H O2 Saturation 99 100 12/14/21 12/14/21 12/14/21 21:03 22:20 23:12 Temperature 36.6 C Heart Rate 69 65 64 Respiratory 18 17 18 Rate Blood Pressure 158/84 H 164/87 H O2 Saturation 100 100 99 Oxygen O2 Source [With Activity] Room air O2 Source Room air PD MEDICAL DECISION MAKING - ED course Complexity details: reviewed results, re-evaluated patient, d/w patient, d/w family ED course: Patient who sustained a ground-level fall that appears mechanical in nature with a head injury. No focal deficits noted on her exam. CT head is negative for intracranial injuries. Patient does have contusion to the right hand and reported pain to the elbow. X-rays are negative for fracture. Wrist was reexamined given concerns of possible injuries noted on hand x-ray but again on repeat examination she has no tenderness to the snuffbox or over the scaphoid and has full range of motion at the wrist without pain.Patient is ambulatory in the ED. She denies having any symptoms precipitating her fall. Patient is aware of return precautions and to continue with supportive care. Departure - Departure Disposition: 01 Home, Self Care Clinical Impression: Fall from ground level Head injury Qualifiers: Encounter type: initial encounter Qualified Code(s): S09.90XA - Unspecified injury of head, initial encounter Contusion of right hand Qualifiers: Encounter type: initial encounter Qualified Code(s): S60.221A - Contusion of right hand, initial encounter Condition: Stable Instructions: ED Contusion Hand, ED Head Injury Closed Comments: Radha you are evaluated after a fall today whichAppears to have been mechanical in nature. Because you are on a blood thinner and hit her head, head CT was done and did not show any injuries. He do have a bruise to your right hand but x-rays do not show a broken bone. Please use Tylenol for any aches or pains and ice to any areas that are sore. Please take caution when using your walker especially on areas of incline or steps.Please follow-up with your primary care doctor as needed. Return to the emergency department with any worsening symptoms such as increased headache, changes in vision, weakness to 1 side of your body, any concerns. Discharge Date/Time: 12/14/21 23:14
--- OUTSIDE RECORDS SUMMARY | 2021-12-14 21:07 | EXTERNAL MEDICAL SUMMARY RPT | Continuity of Care Document ---
:1940 Author Organization [facility] Address [address] [place] [address] Phone Care Team Providers Name Role Phone Registrar Unavailable Unavailable MD Unavailable Unavailable PA-C Unavailable Unavailable Allergies No information. Encounters No information. Medications date description facility 20211029 clindamycin hcl [facility] 20211029 clindamycin hcl [facility] 20211014 amoxicillin [facility] 20211014 amoxicillin [facility] 20211014 amoxicillin [facility] Problems date description facility 20211125 Tobacco smoking status [facility] 20211125 Exercise [facility] 20211125 Details of drug misuse behavior [facility] 20211125 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 [facility] 20211125 Never smoker [facility] 20211125 Ischemic stroke [facility] 20211125 Alcohol use [facility] 20211029 Localized enlarged lymph nodes [facility] 20211029 Enlargement of lymph nodes [facility] 20211029 Cervical lymphadenopathy [facility] Results No information. Vital Signs date measurement value source 20211014 weight_standard 101 lb 20211014 weight_metric 45.81 kg 20211014 temperature_standard 97.6 F 20211014 temperature_metric 36.44 C 20211014 respiration_rate 17 /min 20211014 height_standard 62 in 20211014 height_metric 157.48 cm 20211014 heart_rate 62 /min 20211014 BP_systolic 135 mm[Hg] 20211014 BP_diastolic 76 mm[Hg] 20211014 BMI 18.54 kg/m2 20211029 weight_standard 102.8 lb 20211029 weight_metric 46.63 kg 20211029 temperature_standard 97.4 F 20211029 temperature_metric 36.33 C 20211029 respiration_rate 16 /min 20211029 height_standard 62 in 20211029 height_metric 157.48 cm 20211029 heart_rate 57 /min 20211029 BP_systolic 110 mm[Hg] 20211029 BP_diastolic 59 mm[Hg] 20211029 BMI 18.87 kg/m2 20211125 weight_standard 101 lb 20211125 weight_metric 45.81 kg 20211125 temperature_standard 97.5 F 20211125 temperature_metric 36.39 C 20211125 respiration_rate 16 /min 20211125 height_standard 62 in 20211125 height_metric 157.48 cm 20211125 heart_rate 68 /min 20211125 BP_systolic 184 mm[Hg] 20211125 BP_diastolic 87 mm[Hg] 20211125 BMI 18.54 kg/m2 20211125 weight_standard 101 lb 20211125 weight_metric 45.81 kg 20211125 temperature_standard 97.5 F 20211125 temperature_metric 36.39 C 20211125 respiration_rate 16 /min 20211125 height_standard 62 in 20211125 height_metric 157.48 cm 20211125 heart_rate 68 /min 20211125 BP_systolic 184 mm[Hg] 20211125 BP_diastolic 87 mm[Hg] 20211125 BMI 18.54 kg/m2
--- NOTE | 2021-12-14 21:58 | CT Report ---
PROCEDURE: HEAD WO INDICATIONS: head injury TECHNIQUE: Noncontrast 4.5 mm thick angled axial sections acquired from the foramen magnum to the vertex. For r adiation dose reduction, the following was used: automated exposure control, adjustment of mA and/or kV according to patient size. COMPARISON: 03/18/2020. FINDINGS: Image quality: There is motion artifact limiting evaluation. CSF spaces: There is mild cerebral volume loss with prominence of the ventricles and sulci. Basal ci sterns are patent. No extra-axial fluid collections. Brain: No definite intracranial hemorrhage, mass, or mass effect. Rashid-white matter interface is pre served. There are subcortical and periventricular white matter hypodensities consistent with mild chr onic small vessel ischemic changes. Skull and face: Calvarium and visualized facial bones are intact, without suspicious lesions. Sinuses: Visualized sinuses demonstrate a sinus retention cyst or mucosal polyp within the right max illary sinus. There is mild mucosal thickening within the bilateral ethmoid sinuses. Mastoid air cell s are clear. IMPRESSION: 1. No definite acute intracranial abnormality. Reviewed by: Anirudh Dallas MD on 12/14/2021 9:57 PM PDT Approved by: Anirudh Dallas MD on 12/14/2021 9:57 PM PDT Station ID: [id number]
--- NOTE | 2021-12-14 22:14 | XRAY Report ---
PROCEDURE: Elbow 3 View RT INDICATIONS: fall/pain TECHNIQUE: 3 views of the elbow were acquired. COMPARISON: None. FINDINGS: Bones: No fractures or dislocations. There is mild osteophytosis along the coronoid process. No susp icious bony lesions. Soft tissues: No elbow joint effusion. No suspicious soft tissue calcifications. IMPRESSION: 1. No fracture or dislocation. Reviewed by: Anirudh Dallas MD on 12/14/2021 10:13 PM PDT Approved by: Anirudh Dallas MD on 12/14/2021 10:13 PM PDT Station ID: [id number]
--- NOTE | 2021-12-14 22:19 | XRAY Report ---
PROCEDURE: Hand 3 View RT INDICATIONS: fall/pain TECHNIQUE: 3 views of the hand acquired. COMPARISON: None. FINDINGS: Bones: There is flattening of the lunate with mild volar angulation suggesting sequelae of prior tra alfa. Evaluation of the scaphoid is limited due to projection. Elsewhere, no definite fracture or disl ocation. Moderate to severe joint space narrowing demonstrated at the first carpometacarpal joint wit h subchondral sclerosis and osteophytosis. There is mild degeneration of the chest the articulation. No suspicious bony lesions. Soft tissues: No suspicious soft tissue calcifications. IMPRESSION: 1. Dysmorphic appearance of the lunate with mild volar angulation suggesting sequelae of prior trauma . Recommend correlation with clinical history and dedicated wrist study if indicated. 2. Limited evaluation of the scaphoid due to projection. If there is clinical concern for scaphoid fr acture, recommend a wrist study with dedicated scaphoid view. Reviewed by: Anirudh Short MD on 12/14/2021 10:17 PM PDT Approved by: Anirudh Short MD on 12/14/2021 10:17 PM PDT Station ID: [id number]
[2021-12-14 22:21] VITALS: BP 164/87
== END 2021-12-14 23:14 | disposition home or self-care (01) ==
LOC: ED 20:05
DX: S09.90XA Unspecified injury of head, initial encounter (principal); S60.221A Contusion of right hand, initial encounter; W01.0XXA Fall on same level from slipping, tripping and stumbling without subsequent striking against object, initial encounter; Y93.01 Activity, walking, marching and hiking; Y92.098 Other place in other non-institutional residence as the place of occurrence of the external cause; Z79.01 Long term (current) use of anticoagulants
CPT/HCPCS: 36415; 99282; 99284

== ENCOUNTER 2022-08-18 07:00 | Outpatient (CLI) | payer MEDICARE | END 2022-08-18 23:59 | disposition home or self-care (01) | LOC: LAB.S 07:00 | PROVIDERS: ATTEND Registered Nurse | DX: R30.0 Dysuria (principal) | CPT/HCPCS: 87086; 87181 ==

== ENCOUNTER 2022-08-24 16:39 | Emergency (ER) | payer MEDICARE ==
[2022-08-24] MEDS ORDERED: iohexoL-300 100 ML VIAL ONE (17:28)
[2022-08-24 17:32] LABS: BASOPHILS % (AUTO) 0.4 %; EOSINOPHILS # (AUTO) 0.1 10^3/uL (0.0-0.7); EOSINOPHILS % (AUTO) 2.2 %; HCT - HEMATOCRIT 37.1 % (37.0-47.0); HGB - HEMOGLOBIN 11.6 g/dL (12.0-16.0); LYMPHOCYTES # (AUTO) 0.8 10^3/uL (1.5-3.5); LYMPHOCYTES % (AUTO) 16.2 %; MEAN CORPUSCULAR HEMOGLOBIN 31.8 pg (27.0-31.0); MEAN CORPUSCULAR HGB CONC 31.3 g/dL (32.0-36.0); MEAN CORPUSCULAR VOLUME 101.6 fL (81.0-99.0); MEAN PLATELET VOLUME 9.2 fL (7.9-10.8); MONOCYTES # (AUTO) 0.5 10^3/uL (0.0-1.0); MONOCYTES % (AUTO) 10.2 %; NEUTROPHILS # (AUTO) 3.5 10^3/uL (1.5-6.6); NEUTROPHILS % (AUTO) 70.8 %; PLT - PLATELET COUNT 178 10^3/uL (130-450); RED BLOOD COUNT 3.65 10^6/uL (4.20-5.40); RED CELL DISTRIBUTION WIDTH 13.4 % (12.0-15.0)
--- OUTSIDE RECORDS SUMMARY | 2022-08-24 17:34 | EXTERNAL MEDICAL SUMMARY RPT | Continuity of Care Document ---
:1940 Author Organization [facility] Address [address] [place] [address] Phone Care Team Providers Name Role Phone Unavailable Unavailable Unavailable Jose Daniel Castellanos,Aerospace Manager, Nathaniel Unavailable Unavailable Demarco Castellanos Enp, Mindy Unavailable Unavailable Haily Mejia, Earlene Unavailable Unavailable Alistair Patient Registrar, Diana Unavailable Unavai lable Allergies No information. Encounters No information. Functional Status No information. Immunizations No information. Medications date description facility 2022-08-19 00:00 ropinirole [facility] 2022-08-19 00:00 ropinirole [facility] 2022-08-22 00:00 ropinirole [facility] 2022-08-23 00:00 ropinirole [facility] 2022-08-18 00:00 amoxicillin-pot clavulanate Walk-In Cl in [facility] 2022-08-18 00:00 amoxicillin-pot clavulanate Walk[facility]In Cl in [facility] 2022-08-18 00:00 amoxicillin-pot clavulanate Walk[facility]In [facility] in [facility] 2022-08-18 00:00 amoxicillin-pot clavulanate Walk[facility]In [facility] in [facility] 2022-08-18 00:00 amoxicillin-pot clavulanate Walk-In Cl in [facility] 2022-08-18 00:00 amoxicillin-pot clavulanate Walk-In [facility] in [facility] 2022-08-18 00:00 amoxicillin-pot clavulanate Walk[facility]In [facility] in [facility] 2022-08-18 00:00 amoxicillin-pot clavulanate [facility] 2022-08-22 00:00 ciprofloxacin hcl [facility] 2022-08-22 00:00 ciprofloxacin hcl [facility] 2022-08-18 00:00 CEFTRIAXONE SODIUM [facility] [place] 2022-08-18 00:00 CEFTRIAXONE SODIUM [facility] 2022-08-18 00:00 ACETAMINOPHEN [facility] [place] 2022-08-18 00:00 ACETAMINOPHEN [facility] [place] 2022-08-22 00:00 ciprofloxacin hcl [facility] [place] 2022-08-22 00:00 ciprofloxacin hcl [facility] [place] 2022-08-19 00:00 ropinirole [facility] [place] 2022-08-19 00:00 ropinirole [facility] [place] 2022-08-22 00:00 ropinirole [facility] [place] 2022-08-23 00:00 ropinirole [facility] [place] 2022-08-22 00:00 ciprofloxacin hcl [facility] [place] 2022-08-22 00:00 ciprofloxacin hcl [facility] [place] 2022-08-22 00:00 ciprofloxacin hcl [facility] [place] 2022-08-22 00:00 ciprofloxacin hcl [facility] [place] 2022-08-19 00:00 ropinirole [facility] [place] 2022-08-19 00:00 ropinirole [facility] [place] 2022-08-22 00:00 ropinirole [facility] [place] 2022-08-23 00:00 ropinirole [facility] [place] 2022-08-18 00:00 amoxicillin-pot clavulanate [facility] [place] 2022-08-18 00:00 amoxicillin-pot clavulanate [facility] 2022-08-18 00:00 amoxicillin-pot clavulanate [facility] [place] 2022-08-18 00:00 amoxicillin-pot clavulanate [facility] [place] 2022-08-19 00:00 ropinirole [facility] [place] 2022-08-19 00:00 [facility]role [facility] [place] [facility] 2022-08-22 00:00 [facility]role [facility] [place] [facility] 2022-08-23 00:00 ropinirole [facility] [facility] 2022-08-18 00:00 amoxicillin-pot clavulanate [facility] in [facility] 2022-08-18 00:00 amoxicillin-pot clavulanate [facility] [facility] 2022-08-18 00:00 amoxicillin-pot clavulanate [facility] 2022-08-18 00:00 amoxicillin-pot clavulanate [facility] 2022-08-18 00:00 KETOROLAC TROMETHAMINE [facility] [facility] 2022-08-18 00:00 KETOROLAC TROMETHAMINE [facility] [facility] Problems date description facility 2022-08-18 00:00 Pyelonephritis [facility] [facility] 2022-08-18 00:00 Pyelonephritis [facility] 2022-08-18 00:00 Pyelonephritis, unspecified [facility] [place] 2022-08-18 00:00 Pyelonephritis, unspecified Walk-In Cl [facility] [place] 2022-08-18 00:00 Tubulo-interstitial nephritis, not [facility] & specified as acute or chronic [facility] 2022-08-18 00:00 Tubulo-interstitial nephritis, not [facility] & specified as acute or chronic [facility] Procedures date description facility 2022-08-18 00:00 Visit Code Hold [facility] 2022-08-18 00:00 Visit Code Hold [facility] 2022-08-18 00:00 Visit Code Hold [facility] 2022-08-18 00:00 Visit Code Hold [facility] 2022-08-18 00:00 POC URINALYSIS DIP [facility] 2022-08-18 00:00 POC URINALYSIS DIP [facility] 2022-08-18 00:00 POC URINALYSIS DIP [facility] 2022-08-18 00:00 POC URINALYSIS DIP [facility] Results/Labs test date author facility value unit interpret ation Result panel 1 (unknown) (no date) (unknown) Walk-In (no value) (units (unk nown) Clinic Primary unknown) [facility] Result panel 2 (unknown) (no date) (unknown) Walk-In (no value) (units (unk nown) Clinic Primary unknown) [facility] Result panel 3 (unknown) (no date) (unknown) Walk-In (no value) (units (unk nown) Clinic Primary unknown) [facility] Result panel 4 (unknown) (no date) (unknown) Walk-In (no value) (units (unk nown) Clinic Primary unknown) [facility] Result panel 5 (unknown) (no date) (unknown) Walk-In (no value) (units (unk nown) Clinic Primary unknown) [facility] Result panel 6 (unknown) (no date) (unknown) Walk-In (no value) (units (unk nown) Clinic Primary unknown) [facility] Result panel 7 (unknown) (no date) (unknown) Walk-In (no value) (units (unk nown) Clinic Primary unknown) [facility] Result panel 8 (unknown) (no date) (unknown) Walk-In (no value) (units (unk nown) Clinic Primary unknown) [facility] Result panel 9 (unknown) (no date) (unknown) Walk-In (no value) (units (unk nown) Clinic Primary unknown) [facility] Result panel 10 (unknown) (no date) (unknown) Walk-In (no value) (units (unk nown) Clinic Primary unknown) [facility] Result panel 11 (unknown) (no date) (unknown) Walk-In (no value) (units (unk nown) Clinic Primary unknown) [facility] Result panel 12 (unknown) (no date) (unknown) Walk-In (no value) (units (unk nown) Clinic Primary unknown) [facility] Result panel 13 (unknown) (no date) (unknown) Walk-In (no value) (units (unk nown) Clinic Primary unknown) [facility] Result panel 14 (unknown) (no date) (unknown) Walk-In (no value) (units (unk nown) Clinic Primary unknown) [facility] Result panel 15 (unknown) (no date) (unknown) Walk-In (no value) (units (unk nown) Clinic Primary unknown) [facility] Result panel 16 (unknown) (no date) (unknown) Walk-In (no value) (units (unk nown) Clinic Primary unknown) [facility] Result panel 17 (unknown) (no date) (unknown) Walk-In (no value) (units (unk nown) Clinic Primary unknown) [facility] Result panel 18 (unknown) (no date) (unknown) Walk-In (no value) (units (unk nown) Clinic Primary unknown) [facility] Result panel 19 (unknown) (no date) (unknown) Walk-In (no value) (units (unk nown) Clinic Primary unknown) [facility] Result panel 20 (unknown) (no date) (unknown) Walk-In (no value) (units (unk nown) Clinic Primary unknown) [facility] Result panel 21 (unknown) (no date) (unknown) Walk-In (no value) (units (unk nown) Clinic Primary unknown) [facility] Result panel 22 (unknown) (no date) (unknown) Walk-In (no value) (units (unk nown) Clinic Primary unknown) [facility] Result panel 23 (unknown) (no date) (unknown) Walk-In (no value) (units (unk nown) Clinic Primary unknown) [facility] Result panel 24 (unknown) (no date) (unknown) Walk-In (no value) (units (unk nown) Clinic Primary unknown) [facility] Result panel 25 (unknown) (no date) (unknown) Walk-In (no value) (units (unk nown) Clinic Primary unknown) [facility] Result panel 26 (unknown) (no date) (unknown) Walk-In (no value) (units (unk nown) Clinic Primary unknown) [facility] Result panel 27 (unknown) (no date) (unknown) Walk-In (no value) (units (unk nown) Clinic Primary unknown) [facility] Result panel 28 (unknown) (no date) (unknown) Walk-In (no value) (units (unk nown) Clinic Primary unknown) [facility] Result panel 29 (unknown) (no date) (unknown) Walk-In (no value) (units (unk nown) Clinic Primary unknown) [facility] Result panel 30 (unknown) (no date) (unknown) Walk-In (no value) (units (unk nown) Clinic Primary unknown) [facility] Result panel 31 (unknown) (no date) (unknown) Walk-In (no value) (units (unk nown) Clinic Primary unknown) [facility] Result panel 32 (unknown) (no date) (unknown) Walk-In (no value) (units (unk nown) Clinic Primary unknown) [facility] Result panel 33 (unknown) (no date) (unknown) Walk-In (no value) (units (unk nown) Clinic Primary unknown) [facility] Result panel 34 (unknown) (no date) (unknown) Walk-In (no value) (units (unk nown) Clinic Primary unknown) [facility] Result panel 35 (unknown) (no date) (unknown) Walk-In (no value) (units (unk nown) Clinic Primary unknown) [facility] Result panel 36 (unknown) (no date) (unknown) Walk-In (no value) (units (unk nown) Clinic Primary unknown) [facility] Social History date description facility 2022-08-18 00:00 Never smoker Walk-In Clinic [facility] 2022-08-18 00:00 Never smoker Walk-In Clinic [facility] Vital Signs date measurement value units 2022-08-18 00:00 BMI 19.64 kg/m2 2022-08-18 00:00 BP_diastolic 85 mmHg 2022-08-18 00:00 BP_systolic 157 mmHg 2022-08-18 00:00 heart_rate 70 /min 2022-08-18 00:00 height_metric 157.48 cm 2022-08-18 00:00 height_standard 62 in 2022-08-18 00:00 respiration_rate 20 /min 2022-08-18 00:00 temperature_metric 36.33 C 2022-08-18 00:00 temperature_standard 97.4 F 2022-08-18 00:00 weight_metric 48.53 kg 2022-08-18 00:00 weight_standard 107 lb
[2022-08-24 17:40] LABS: INR 1.2 (0.8-1.2); PT - PROTHROMBIN TIME 13.4 secs (9.9-12.6)
[2022-08-24 17:41] LABS: CALCIUM 9.1 mg/dL (8.5-10.3); CREATININE 0.7 mg/dL (0.4-1.0); POTASSIUM 3.9 mmol/L (3.5-5.0)
[2022-08-24] MEDS ORDERED: SODIUM CHLORIDE 0.9% 1,000 ML IV STA (17:50)
--- NOTE | 2022-08-24 17:52 | ED Physician Documentation ---
PD HPI FOCAL NEURO - Stated complaint Stated Complaint: MHE, HALLUCINATIONS - Chief complaint Chief Complaint: Neuro - History obtained from History obtained from: Patient, Family - Additional information Additional information: 81-year-old woman with parkinsonian dementia, presumed A. fib as she is on Xarelto, lives at home with son with home health care. About 2 weeks ago had a respiratory infection that resolved. Last Monday had foul-smelling urine and went to the clinic and was diagnosed with UTI. She is on her third round of antibiotics without improvement in fact since yesterday has gotten worse with increased confusion, falls and potentially left-sided deficits. Most of the history is from the son as she is very hard to understand. Review of Systems Unable to obtain: Dementia PD PAST MEDICAL HISTORY - Past Medical History Cardiovascular: High cholesterol, Atrial fibrillation Respiratory: None Neuro: Parkinson's Endocrine/Autoimmune: None GI: GERD GAS PUMP ATTENDANT: None : None HEENT: None Psych: None Musculoskeletal: None Derm: None - Past Surgical History Past Surgical History: Yes General: Cholecystectomy - Present Medications Home Medications: Ambulatory Orders Medication Instructions Recorded Confirmed Carbidopa/Levodopa [Carbidopa-Levo 1 tab PO TID 12/11/15 12/14/21 25-100 mg Odt] Omeprazole 20 mg PO DAILY 12/11/15 12/14/21 Ropinirole HCl [Ropinirole ER] 6 mg PO DAILY 12/11/15 12/14/21 Simvastatin 10 mg PO DAILY 12/11/15 12/14/21 Rivaroxaban [Xarelto] 15 mg PO DAILY 01/11/17 12/14/21 - Allergies Allergies/Adverse Reactions: Allergies Allergy/AdvReac Type Severity Reaction Status Date / Time Sulfa (Sulfonamide Allergy Edema Verified 12/14/21 20:13 Antibiotics) - Social History Does the pt smoke?: No Smoking Status: Never smoker Does the pt drink ETOH?: No Does the pt have substance abuse?: No - Immunizations Immunizations are current?: Yes - POLST Patient has POLST: Yes PD ED PE NORMAL - Vitals Vital signs reviewed: Yes - General General: Other (She is alert and oriented to person and place. She thinks it is September but knows the year. Knows the president. Is hard to understand.) - HEENT HEENT: PERRL, EOMI - Neck Neck: Supple, no meningeal sign, No bony TTP - Cardiac Cardiac: Other (Irregularly irregular without murmur) - Respiratory Respiratory: No respiratory distress, Clear bilaterally - Abdomen Abdomen: Normal bowel sounds, Soft, Non tender - Back Back: No CVA TTP, No spinal TTP - Derm Derm: Normal color, Warm and dry - Extremities Extremities: No edema, No calf tenderness / cord - Neuro Neuro: surveyor helper rod 2-12 intact Eye Opening: Spontaneous Motor: Obeys Commands NIHSS - Time Time: 17:40 - Level of Consciousness Level of consciousness: (0) Alert, Keenly responsive LOC Questions: (1) Answers one Q correctly LOC Commands: (0) Performs both correctly - Gaze Best Gaze: (0) Normal - Visual Visual: (0) No loss - Facial Palsy Facial Palsy: (0) Normal, symmetrical movement - Motor Arms (both separate) Motor Arm (right): (0) No drift Motor Arm (left): (0) No drift - Motor Legs (both separate) Motor Leg (right): (0) No drift Motor Leg (left): (0) No drift - Limb Ataxia Limb Ataxia: (0) Absent - Sensory Sensory: (0) Normal - Best Language Best Language: (1) [id number] - Dysarthria Dysarthria: (1) [id number] dysarthria - Extinction and Inattention (formally neg Extinction and inattention: (0) No abnormality - Total Score/Results Total Score/Result: 3 Results - Vitals Vitals: Vital Signs - 24 hr 08/24/22 08/24/22 08/24/22 16:58 17:31 17:37 Temperature 37 C Heart Rate 93 87 80 Respiratory 16 28 H 22 Rate Blood Pressure 137/110 H 139/83 H 144/73 H O2 Saturation 98 99 100 08/24/22 08/24/22 18:37 19:00 Temperature Heart Rate 108 H 96 Respiratory 18 18 Rate Blood Pressure 143/104 H 149/97 H O2 Saturation 97 98 Oxygen O2 Source [With Activity] Room air O2 Source Room air - Labs Labs: Laboratory Tests 08/24/22 08/24/22 08/24/22 17:25 17:25 17:25 WBC 5.0 RBC 3.65 L Hgb 11.6 L Hct 37.1 MCV 101.6 H MCH 31.8 H MCHC 31.3 L RDW 13.4 Plt Count 178 MPV 9.2 Neut # (Auto) 3.5 Lymph # (Auto) 0.8 L [place] # (Auto) 0.5 Eos # (Auto) 0.1 Baso # (Auto) 0.0 Absolute Nucleated RBC 0.00 Nucleated RBC % 0.0 PT 13.4 H INR 1.2 Sodium 139 Potassium 3.9 Chloride 101 Carbon Dioxide 33 H Anion Gap 5.0 L BUN 18 Creatinine 0.7 Estimated GFR (MDRD) 81 L Glucose 102 H Calcium 9.1 PD Medical Decision Making - ED course ED course: This is a 81-year-old woman who presents with strokelike symptoms, but on further history it sounds like there is been more of an acute on chronic decline related to her Parkinson's and dementia lately. She been having a lot of trou ble with sleep, they tried trazodone but that completely knocked her out but then when she got up she was agitated. Subsequently just today started a very low-dose of Seroquel, half a tablet of the 25 mg and that is probably what caused the acutely slurred speech. There is no evidence of stroke or lateralizing symptoms on my exam and CT angiography of the head and neck were negative. Son was comfortable taking her home and understands the Seroquel may be a necessary evil if she is developing agitated dementia. Departure - Departure Disposition: 01 Home, Self Care Clinical Impression: Slurred speech Parkinsonism Qualifiers: Parkinsonism type: Parkinson's disease Qualified Code(s): G20 - Parkinson's disease Condition: Good Record reviewed to determine appropriate education?: Yes Instructions: ED Dementia Caregiver Support Comments: Reasonable to continue the Seroquel at the current very low-dose, with the understanding that it may sedate her and give her slurred speech but that may be a necessary evil. Reasonable to follow-up with your primary care physician and your neurologist, next available appointments. Return if worse.
--- NOTE | 2022-08-24 19:08 | CT Report ---
PROCEDURE: ANGIO HEAD W/WO INDICATIONS: CVA sx CONTRAST: 80mL Omni 300 TECHNIQUE: Precontrast 4.5 mm thick angled axial sections acquired from the foramen magnum to the vertex. Afte r the administration of intravenous contrast, 1 mm thick sections acquired through the [place] of [place] is. Postcontrast 4.5 mm thick sections then re-acquired from the foramen magnum to the vertex. 3-di mensional aebxiar-qplafvmeu-wvbpenmlwd (MIP) and/or volume rendering reformats were acquired of the c entral intracranial vasculature. For radiation dose reduction, the following was used: automated ex posure control, adjustment of mA and/or kV according to patient size. COMPARISON: None FINDINGS: Image quality: Degraded by dental artifact and motion artifact. Anterior circulation: Intracranial internal carotid arteries are normal in size and flow. The flow within the paired anterior cerebral arteries is normal and symmetric. The flow within the middle cer ebral arteries is normal and symmetric. The anterior communicating artery is seen. No aneurysms are seen. Posterior circulation: Visualized portions of the vertebral arteries demonstrate normal caliber, and join to form a normal appearing basilar artery. Flow within the posterior cerebral arteries is norm al and symmetric. No aneurysms are seen. CSF spaces: Ventricles are normal in size and shape. Basal cisterns are patent. No extra-axial flu id collections. Brain: No midline shift. No intracranial bleeds or masses. Rashid-white matter interface appears int act. Skull and face: Calvarium and facial bones appear intact, without suspicious lesions. Sinuses: Right maxillary sinus retention cyst. IMPRESSION: No acute process involving the arterial tree of the head. Reviewed by: Gokul Pereyra MD on 08/24/2022 7:07 PM PST Approved by: Gokul Pereyra MD on 08/24/2022 7:07 PM PST Station ID: [id number]
--- NOTE | 2022-08-24 19:09 | CT Report ---
PROCEDURE: ANGIO NECK W INDICATIONS: CVA sx CONTRAST: 80mL Omni 300 TECHNIQUE: After the administration of intravenous contrast, 1.5 mm axial sections acquired from the aortic arch to the [place] of [place]. Coronal 3-D maximum intensity projection (MIP) and/or volume rendering ref ormats were then performed. For radiation dose reduction, the following was used: automated exposur e control, adjustment of mA and/or kV according to patient size. COMPARISON: None. FINDINGS: Image quality: Excellent. Carotid system: The great vessels demonstrate a conventional anatomy as they arise from the aortic a rch. The origins of the common carotid arteries appear patent. The common carotid arteries demonstr ate normal calibers and courses. The bifurcation regions appear normal bilaterally. The internal ca rotid arteries demonstrate normal caliber and course. Posterior circulation: The origins of the vertebral arteries appear patent. The more superior porti ons of the vertebral arteries demonstrate normal course and caliber. They join to form a normal appe aring basilar artery. Soft tissues: Visualized neck soft tissues demonstrate no suspicious abnormalities. The thyroid is normal in size and there are no incidental findings. Bones: No suspicious bony lesions. Visualized cervical spine appears normally aligned. IMPRESSION: No acute process involving the arterial tree of the neck. The estimate of stenosis included in the report of the imaging study was calculated using the NASCET method CLINICAL RECOMMENDATION STATEMENTS: In patients <35 years with an ITN detected on CT, MRI, or extrathyroidal ultrasound, the Committee re commends further evaluation with dedicated thyroid ultrasound if the nodule is "e1 cm and has no susp icious imaging features, and if the patient has normal life expectancy. In patients "e35 years with an ITN detected on CT, MRI, or extrathyroidal ultrasound, the Committee r ecommends further evaluation with dedicated thyroid ultrasound if the nodule is "e1.5 cm and has no s uspicious imaging features, and if the patient has normal life expectancy. (ACR, 2014) Reviewed by: Gokul Pereyra MD on 08/24/2022 7:08 PM PST Approved by: Gokul Pereyra MD on 08/24/2022 7:08 PM PST Station ID: [id number]
[2022-08-24] MEDS ORDERED: iohexoL-300 100 ML VIAL IVP ONE (19:53)
[2022-08-24 20:38] VITALS: BP 149/98
== END 2022-08-24 20:38 | disposition home or self-care (01) ==
LOC: ED 16:39
DX: G20 Parkinson's disease (principal); R47.81 Slurred speech
CPT/HCPCS: 36415; 70496; 70498; 80048; 85025; 85610; 96360; 99284; Q9967

== ENCOUNTER 2022-08-26 15:17 | Outpatient (CLI) | payer MEDICARE | END 2022-08-26 23:59 | disposition E | LOC: EMS 15:17 | DX: I46.9 Cardiac arrest, cause unspecified (principal) ==